=== PATIENT | female | born 1955 | race Caucasian/White ===

== ENCOUNTER → 2019-05-03 12:31 | Outpatient (CLI) | payer MEDICARE, SELFPAY ==
--- NOTE | 2019-05-03 | DI.US.S_ITS ---
LIMITED ULTRASOUND OF LEFT BREAST: 05/03/2019 CLINICAL: Additional evaluation requested from prior study. Comparison is made to exams dated: 05/03/2019 mammogram - [facility], 04/22/2019 mammogram, 03/24/2018 mammogram, 06/10/2016 mammogram, and 06/08/2015 mammogram - [facility]. Color flow and real-time ultrasound of the left breast 1 o'clock region were performed. Joe scale images of the real-time examination were reviewed. There is a benign 0.4 cm oval normal lymph node with a circumscribed margin in the left axillary tail. This oval normal lymph node displays fatty hilum. This correlates with mammography findings. IMPRESSION: BENIGN There is no sonographic evidence of malignancy. The 0.4 cm oval normal lymph node is consistent with a lymph node and is benign. A 1 year screening mammogram is recommended. Exam findings and recommendation was conveyed to the patient by the forest fire fighter. This exam was interpreted at Station ID: [id number]. Electronically Signed By: Owen Childress M.D. [facility] [place]/:05/03/2019 14:28:52 letter sent: Normal Exam Ultrasound BI-RADS: 2 Benign
--- NOTE | 2019-05-03 | DI.MG.S_ITS ---
UNILATERAL LEFT DIGITAL DIAGNOSTIC MAMMOGRAM 3D/2D WITH ADDITIONAL VIEWS: 05/03/2019 CLINICAL: Additional evaluation requested from prior study. Comparison is made to exams dated: 04/22/2019 mammogram, 03/24/2018 mammogram, 06/10/2016 mammogram, and 06/08/2015 mammogram - [facility]. The tissue of left breast is heterogeneously dense. This may lower the sensitivity of mammography. There is a 0.5 cm oval equal density probable lymph node in the left axillary tail. This is seen in additional views. Possible asymmetry in the left breast middle depth medial region seen on the prior craniocaudal view only is not seen in additional compression views. No other significant masses or calcifications are seen in the breast. IMPRESSION: INCOMPLETE: NEEDS ADDITIONAL IMAGING EVALUATION Probable 0.5 cm oval equal density lymph node in the left axillary tail is indeterminate. An targeted ultrasound is recommended and will immediately follow this examination. Possible asymmetry in the left breast middle depth medial region resolves on additional views and likely represents overlapping fibroglandular tissue and is benign. This exam was interpreted at Station ID: [id number]. NOTE: For mammograms, a report in lay terms will be sent to the patient. Approximately 15% of breast malignancies will not be visualized mammographically. In the management of a palpable breast mass, a negative mammogram must not discourage biopsy of a clinically suspicious lesion. Electronically Signed By: Owen Childress M.D. [facility]/:05/03/2019 13:44:33 ACR BI-RADS Category 0: Incomplete [id number]
== END ==
PROVIDERS: PCP Student in an Organized Health Care Education/Training Program; Visit Provider Student in an Organized Health Care Education/Training Program
DX: R92.8 Other abnormal and inconclusive findings on diagnostic imaging of breast (principal)
CPT/HCPCS: 76642; 77065; G0279

== ENCOUNTER → 2020-12-27 18:16 | Outpatient (ROUT) | payer MEDICARE, SELFPAY ==
[2020-12-27 19:02] LABS: Triiodothryronine T3 Uptake 30.8 % (23.5-40.5)
[2020-12-27 19:17] LABS: TSH w/ Reflex to FT4 5.31 uIU/mL (0.47-4.68)
[2020-12-27 19:49] LABS: Free T4, Direct Thyroxine 0.85 ng/dL (0.78-2.19)
== END ==
PROVIDERS: PCP Student in an Organized Health Care Education/Training Program; Visit Provider Student in an Organized Health Care Education/Training Program
DX: E04.9 Nontoxic goiter, unspecified (principal); Z00.00 Encounter for general adult medical examination without abnormal findings
CPT/HCPCS: 84439; 84443; 84479